=== PATIENT | female | born 1930 | race Caucasian/White ===

== ENCOUNTER 2019-10-05 11:05 | Inpatient (IN) | payer OTHER ==
[2019-10-05] MEDS ORDERED: LACTATED RINGERS SOLUTION 1,000 ML IV STA (11:34)
--- NOTE | 2019-10-05 12:10 | PDOC ---
Documentation entered by Francisco Davila SCRIBE, acting as scribe for Kimi Mendez MD. Kimi Mendez MD: This documentation has been prepared by the Lola da silva Nirvannie, SCRIBE, under my direction and personally reviewed by me in its entirety. I confirm that the documentation accurately reflects all work, treatment, procedures, and medical decision making performed by me. History of Present Illness - General Stated Complaint: Diarrhea Time Seen by Provider: 10/05/19 11:12 History Source: Patient Exam Limitations: No Limitations - History of Present Illness Initial Comments: 10/05/19 12:55 HPI: The patient is an 88YOF with a significant past medical history of hypertension , macular degeneration, and decreased hearing presenting to the ED with 4 days of generalized weakness, nonproductive cough, and new onset of one day of watery brown diarrhea. a/w poor appetite and PO intake x 3 days. As per patient s daughter at bedside, she recently fell out of bed 4 days ago on Thursday and landed on her knees, at which time she was unable to get up and EMS was called ( pt signed RMA and did not come to the hospital). Daughter notes yesterday the patient called her and noted to feel sick thus, she took her to her PCP Dr. Meza today. While in the office patient had one episode of nonbloody, watery, brown diarrhea x 1 large episode. Patient was advised by her PCP to report to the ED for further evaluation. Patient is up to date with her flu shot. Denies fever, chills, chest pain, SOB, palpitations, dizziness, weakness, N, V, abdominal pain, bladder problems, focal weakness/paresthesias, leg swelling/pain , rash. No sick contacts or travel. No new changes in medications. No suspicious food intake Allergies: None Past Medical History/PSH: hypertension, macular degeneration, and decreased hearing Social history: Lives with family. No tobacco, ETOH or drug use. Meds: as documented in EMR Family history: noncontributory PMD: Dr. Meza ROS: Constitutional: +fevers , +generalized malaise, anorexia, poor PO intake HEENT: no headache or dizziness. No congestion. No visual/hearing disturbances. CVS: no cp or syncope. Resp: +sob. +cough. Gastrointestinal: +Diarrhea. no abdominal pain, nausea or vomiting. Genitourinary: no urinary sx, hematuria. MUSCULOSKELETAL: No joint pain and swelling. No neck or back pain. SKIN: no redness or skin changes, no discharge, no rash. No wounds. Hematologic: no easy bruising/bleeding. NEUROLOGIC: No headache, dizziness, LOC or altered mental status. No weakness, numbness or tingling. Psych: no anxiety or depression Allergic/Immunologic: no allergies All other systems reviewed and negative, or as documented in HPI. Physical Exam: General: awake and alert, NAD. HEENT: NCAT, PERRL, EOMI, clear conjunctiva, anicteric, moist mucus membranes, clear oropharynx, no oral lesions.. Neck: neck supple, FROM Resp: +Diminished breath sounds on the left. normal and even respirations, no respiratory distress CVS: RRR, no murmurs, 2+ peripheral pulses throughout, no peripheral edema Abdomen: soft, NTND, no rebound or guarding. No CVAT. Back: nontender, normal inspection and ROM MSK: no edema, ALATORRE x4, ROM intact. No clubbing or cyanosis. normal bulk and tone. Extremities: no calf tenderness Neuro: alert, oriented appropriately; no focal neurologic deficits Psych: Calm and cooperative Skin: warm and well perfused, cap refill <2 sec, normal color 10/05/19 13:48 10/05/19 13:58 10/05/19 14:10 Past History - Past Medical History Allergies/Adverse Reactions: Allergies Allergy/AdvReac Type Severity Reaction Status Date / Time No Known Allergies Allergy Verified 10/26/12 13:47 Home Medications: Ambulatory Orders Aspirin Coated [Ecotrin -] 81 mg PO DAILY 10/26/12 Atorvastatin Calcium [Lipitor] 10 mg PO HS 10/26/12 Calcium Citrate/Vitamin D3 [Citracal-Vit D 250 mg-200 Tab] 1 each PO DAILY 10/26 Metoprolol Succinate [Toprol XL -] 100 mg PO DAILY 10/26/12 Quinapril HCl [Accupril -] 40 mg PO DAILY 10/26/12 Diazepam [Valium] 5 mg PO Q8H 10/05/19 Metoprolol Succinate 50 mg PO HS 10/05/19 Anemia: No Asthma: No Cancer: No Cardiac Disorders: No CVA: No COPD: No CHF: No Dementia: No Diabetes: No GI Disorders: Yes (DIVERTICULOSIS) Disorders: No HTN: Yes Hypercholesterolemia: Yes Liver Disease: No Seizures: No Thyroid Disease: No - Surgical History Neurologic Surgery: No Orthopedic Surgery: No - Psycho Social/Smoking Cessation Hx Smoking History: Never smoked Hx Alcohol Use: No Drug/Substance Use Hx: No Substance Use Type: None *Physical Exam - Vital Signs Last Vital Signs Temp Pulse Resp BP Pulse Ox 98 F 90 17 143/70 97 10/05/19 11:05 10/05/19 11:05 10/05/19 11:05 10/05/19 11:05 10/05/19 11:05 Heart Score/ECG Review #1 ECG reviewed & interpreted by me at: 12:00 General ECG Interpretation: Sinus Rhythm, Normal Rate, Normal Intervals 10/05/19 12:09 EKG normal sinus rhythm 77 bpm, no interval abnormalities, left axis deviation, LBBB, ST and T wave segments and morphology normal. Nonspecific T wave abnormalities ED Treatment Course - LABORATORY CBC & Chemistry Diagram: 10/05/19 12:13 10/05/19 12:13 Medical Decision Making - Critical Care Time Total Critical Care Time (minutes): 40 (influenza, NSTEMI) Critical Care Statement: The care of this patient involved high complexity decision making to prevent further life threatening deterioration of the patient 's condition and/or to evaluate & treat vital organ system(s) failure or risk of failure. - Medical Decision Making 10/05/19 13:50 Vital Signs Temp Pulse Resp BP Pulse Ox 98 F 90 17 143/70 97 10/05/19 11:05 10/05/19 11:05 10/05/19 11:05 10/05/19 11:05 10/05/19 11:05 Vital signs notable for no fever, hemodynamically appropriate, no tachycardia, SPO2 97% on room air without respiratory distress. Differential diagnosis includes dehydration, viral gastroenteritis, influenza, viral syndrome, pneumonia, infection, anemia, electrolyte/metabolic derangements Laboratory results unremarkable, no leukocytosis, no evidence anemia, coags are normal, electrolytes also within normal limits, LFTs are normal. However troponin is elevated 0.15 likely demand, patient is also influenza A positive, given her acute symptoms and age and comorbidities, risk of complications so we will treat with Tamiflu. Dr Carias cards cs likely demand 2/2 influenza. ASA given for NSTEMi d/w Dr Meza, PMD, amenable to plan updated with results, ok with admission to hospitalist service Admission with droplet precautions for influenza virus and symptomatic, risk of complications and and STEMI likely demand ischemia, equipment monitor phototypesetting, continued observation hydration and antiviral therapy pt and family updated with impression and plan. admitting and s/o to Dr Teresa Reyes, 10/05/19 14:10 Discharge - Discharge Information Problems reviewed: Yes Clinical Impression/Diagnosis: Influenza A, NSTEMI (non-ST elevated myocardial infarction) Condition: Guarded - Admission Yes - Follow up/Referral Referrals: Pedro Meza MD [Primary Care Provider] - - Patient Discharge Instructions - Post Discharge Activity
[2019-10-05 12:34] LABS: BASO % 0.4 % (0-2.0); HEMATOCRIT 42.1 % (32.4-45.2); HEMOGLOBIN 14.5 GM/dL (10.7-15.3); LYMPH % 12.8 % (8-40); MCH 32.2 pg (25.7-33.7); MCHC 34.4 g/dl (32.0-36.0); MEAN CELL VOLUME 93.5 fl (80-96); MEAN PLT VOLUME 7.1 fl (7.5-11.1); MONO % 14.3 % (3.8-10.2); NEUT % 72.5 % (42.8-82.8); PLATELET COUNT 156 K/MM3 (134-434); RDW 13.8 % (11.6-15.6); WHITE BLOOD COUNT 5.2 K/mm3 (4.0-10.0)
[2019-10-05 13:01] LABS: INR 0.94 (0.83-1.09); PROTHROMBIN TIME (PATIENT) 11.1 SEC (9.7-13.0)
[2019-10-05 13:04] LABS: ACTIVATED PTT 28.6 SECONDS (25.2-36.5)
[2019-10-05 13:24] LABS: ALBUMIN 3.4 g/dl (3.4-5.0); BILIRUBIN,TOTAL 0.5 mg/dL (0.2-1); BLOOD UREA NITROGEN 18.2 mg/dL (7-18); CALCIUM 8.7 mg/dL (8.5-10.1); CREATININE 0.7 mg/dL (0.55-1.3); POTASSIUM 3.7 mmol/L (3.5-5.1); TOT PROT 6.6 g/dl (6.4-8.2)
[2019-10-05] MEDS ORDERED: OSELTAMIVIR PHOSPHATE 75 MG CAPSULE PO ONE (13:48)
[2019-10-05] MEDS ORDERED: ASPIRIN 81 MG CHEWABLE TABLETS PO ONE (13:48)
[2019-10-05] MEDS ORDERED: ASPIRIN 81 MG CHEWABLE TABLETS ONE (14:05)
[2019-10-05] MEDS ORDERED: OSELTAMIVIR PHOSPHATE 75 MG CAPSULE ONE (14:05)
[2019-10-05] MEDS ORDERED: LACTATED RINGERS SOLUTION 1,000 ML/1,000 ML INFUS.BAG IV SCH (14:45)
--- NOTE | 2019-10-05 14:47 | HP ---
CHIEF COMPLAINT: generalized weakness PCP: Dr. Meza HISTORY OF PRESENT ILLNESS: Pt. is an 88 y.o. F w/ PMHx. of HTN, HLD, macular degeneration, and hearing loss presents for 4 days of generalized weakness and non-productive cough. Pt. states that 4 days ago she was found down on the toilet for ~4hours. Pt. was unable to get her self up but denies hitting her head or loss of consciousness. Pt. states that she eased herself to the ground from the toilet and did not have the strength to pull herself up. EMS was called but Pt. refused going to the hospital. Her weakness continued and she decided to visit her PCP. She had an episode of non-bloody watery diarrhea x 1 before going to see her PCP. Pt. went to the ED immediately. Pt. endorses a good appetite and is asking for food. Pt. denies any fever, chills, pain anywhere including her chest, shortness of breath, dysuria, or any focal weakness more than other sites of her body. Pt. states she received her Flu vaccine, had unremarkable colonoscopy 6 years ago and is uptodate with all her screenings. 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 She lives at home wither her who is becoming increasingly difficult to manage. Pt. states she was prescribed PRN Valium to "deal with him," but only takes half a pill and cannot remember the last time she took the pill. Pt. states she does not take it everyday. Family is in the process of placing him into a SNF for closer monitoring. Pt. is independent and ambulates without assistance. ER course was notable for: (1)ASA 324mg, LR x 1L, Tamiflu (2) CBC, CMP, Trop, CT Head (3) Recent Travel: No PAST MEDICAL HISTORY: As above PAST SURGICAL HISTORY: Hysterectomy Social History: Smoking: Denies Alcohol: Denies Drugs: Denies Allergies No Known Allergies Allergy (Verified 10/26/12 13:47) HOME MEDICATIONS: Home Medications Medication Instructions Recorded Aspirin Coated [Ecotrin -] 81 mg PO DAILY 10/26/12 Atorvastatin Calcium [Lipitor] 10 mg PO HS 10/26/12 Calcium Citrate/Vitamin D3 1 each PO DAILY 10/26/12 [Citracal-Vit D 250 mg-200 Tab] Metoprolol Succinate [Toprol XL -] 100 mg PO DAILY 10/26/12 Quinapril HCl [Accupril -] 40 mg PO DAILY 10/26/12 Diazepam [Valium] 5 mg PO Q8H 10/05/19 Metoprolol Succinate 50 mg PO HS 10/05/19 REVIEW OF SYSTEMS As above PHYSICAL EXAMINATION Vital Signs - 24 hr 10/05/19 11:05 Temperature 98 F Pulse Rate 90 Respiratory 17 Rate Blood Pressure 143/70 O2 Sat by Pulse 97 Oximetry (%) GENERAL: Awake, alert, and fully oriented, in no acute distress. HEAD: Normal with no signs of trauma. EYES: Pupils equal, round and reactive to light, extraocular movements intact, sclera anicteric, conjunctiva clear. Left lid droop. EARS, NOSE, THROAT: Ears normal, nares patent, oropharynx clear without exudates. Dry mucous membranes. LUNGS: Breath sounds equal, clear to auscultation bilaterally. No wheezes, and no crackles. No accessory muscle use. HEART: Regular rate and rhythm, normal S1 and S2 with systolic murmur ABDOMEN: Soft, nontender, not distended, normoactive bowel sounds, no guarding, no rebound, no masses. MUSCULOSKELETAL: Normal range of motion at all joints. No bony deformities or tenderness. No CVA tenderness. UPPER EXTREMITIES: Warm, well-perfused. No cyanosis. No clubbing. No peripheral edema. LOWER EXTREMITIES: 2+ dorsal pedal pulses, warm, well-perfused. No calf tenderness. No peripheral edema. NEUROLOGICAL: Normal speech. Moves all extremities. PSYCHIATRIC: Cooperative. Good eye contact. Appropriate mood and affect. SKIN: Warm, dry, Left guerin lesion. ' Laboratory Results - last 24 hr 10/05/19 10/05/19 10/05/19 12:13 12:13 12:13 WBC 5.2 RBC 4.50 Hgb 14.5 Hct 42.1 MCV 93.5 MCH 32.2 MCHC 34.4 RDW 13.8 Plt Count 156 MPV 7.1 L Absolute Neuts (auto) 3.8 Neutrophils % 72.5 Lymphocytes % 12.8 Monocytes % 14.3 H Eosinophils % 0.0 Basophils % 0.4 Nucleated RBC % 0 PT with INR 11.10 INR 0.94 PTT (Actin FS) 28.6 Sodium 132 L Potassium 3.7 Chloride 97 L Carbon Dioxide 27 Anion Gap 8 BUN 18.2 H Creatinine 0.7 Est GFR (CKD-EPI)AfAm 89.66 Est GFR (CKD-EPI)NonAf 77.36 Random Glucose 119 H Lactic Acid Calcium 8.7 Total Bilirubin 0.5 AST 66 H ALT 32 Alkaline Phosphatase 63 Creatine Kinase 637 H Creatine Kinase Index 0.8 CK-MB (CK-2) 5.1 H Troponin I 0.15 H Total Protein 6.6 Albumin 3.4 Lipase 226 Influenza A (Rapid) Influenza B (Rapid) 10/05/19 10/05/19 12:13 12:13 WBC RBC Hgb Hct MCV MCH MCHC RDW Plt Count MPV Absolute Neuts (auto) Neutrophils % Lymphocytes % Monocytes % Eosinophils % Basophils % Nucleated RBC % PT with INR INR PTT (Actin FS) Sodium Potassium Chloride Carbon Dioxide Anion Gap BUN Creatinine Est GFR (CKD-EPI)AfAm Est GFR (CKD-EPI)NonAf Random Glucose Lactic Acid 1.6 Calcium Total Bilirubin AST ALT Alkaline Phosphatase Creatine Kinase Creatine Kinase Index CK-MB (CK-2) Troponin I Total Protein Albumin Lipase Influenza A (Rapid) Positive A Influenza B (Rapid) Negative ASSESSMENT/PLAN: Pt. is an 88 y.o. F w/ PMHx. of HTN, HLD, macular degeneration, and hearing loss presents for 4 days of generalized weakness and non-productive cough. #Generalized Weakness 2/2 Influenza and dehydration Flu A positive CXR: No acute pathology elevated BUN:Cr indicative of slight ESTIVEN likely 2/2 dehydration c/w Tamiflu 30mg BID (renally dosed) IVF Isolation precaution #Unwitnessed Fall f/u Head CT Will not continue Valium and advise Pt. on discharge to avoid Benzos Pt. currently asymptomatic Neurochecks #Troponinemia Trop: 0.15, flu Rpt. EKG: NSR, QTc: 459, incomplete LBBB f/u RPt. Troponin elevation likely 2/2 to elevated CPK: 637- Pt. reportedly down for 4 hours Cardiology consult to Dr. Carias appreciated #HTN #HLD c/w ASA, Metoprolol, Quinapril and Lipitor #FEN LR@ 42, encourage PO intake monitor electrolytes and replete as needed Sodium controlled diet #DVT Ppx. Lovenox 40mg SQ Visit type - Emergency Visit Emergency Visit: Yes ED Registration Date: 10/05/19 Care time: The patient presented to the Emergency Department on the above date and was hospitalized for further evaluation of their emergent condition. - New Patient This patient is new to me today: Yes Date on this admission: 10/05/19 - Critical Care Critical Care patient: No ATTENDING PHYSICIAN STATEMENT I saw and evaluated the patient. I reviewed the resident's note and discussed the case with the resident. I agree with the resident's findings and plan as documented. SUBJECTIVE: OBJECTIVE: ASSESSMENT AND PLAN:
--- NOTE | 2019-10-05 15:38 | EKG ---
Test Reason : Blood Pressure : / mmHG Vent. Rate : 077 BPM Atrial Rate : 077 BPM P-R Int : 152 ms QRS Dur : 136 ms QT Int : 422 ms P-R-T Axes : 035 -57 103 degrees QTc Int : 477 ms NORMAL SINUS RHYTHM POSSIBLE LEFT ATRIAL ENLARGEMENT LEFT AXIS DEVIATION LEFT BUNDLE BRANCH BLOCK ABNORMAL ECG NO PREVIOUS ECGS AVAILABLE Confirmed by MD Roland Edward ([id number]) on 10/05/2019 3:37:48 PM Referred By: Confirmed By:Roshan Roland MD
--- NOTE | 2019-10-05 15:41 | CON.CARD ---
Cardiology Consult (text) - Consultation Consultation Note: cc: weakness, cough, diarrhea hpi: 88 f hx htn, hld, here with weakness, cough, diarrhea. Past few days has had these sxs. Decreased appetite as well. No cp sob palps dizzy loc pnd orthopnea le edema. +flu in er. pmh: per hpi psh: colonoscopy social: no tob fam: no premature cad ros:per hpi; all others nl meds: Home Medications Medication Instructions Recorded Aspirin Coated [Ecotrin -] 81 mg PO DAILY 10/26/12 Atorvastatin Calcium [Lipitor] 10 mg PO HS 10/26/12 Calcium Citrate/Vitamin D3 1 each PO DAILY 10/26/12 [Citracal-Vit D 250 mg-200 Tab] Metoprolol Succinate [Toprol XL -] 100 mg PO DAILY 10/26/12 Quinapril HCl [Accupril -] 40 mg PO DAILY 10/26/12 Diazepam [Valium] 5 mg PO Q8H 10/05/19 Metoprolol Succinate 50 mg PO HS 10/05/19 pe: Vital Signs Period Temp Pulse Resp BP Sys/Olivas Pulse Ox Last 24 Hr 98 F 90 17 143/70 97 nad no jvd rrr s1s2 no mrg cta bl nl eff aao3 no le e/c/c abd nt nd pos bs no jaundice diaphoresis pos dp pt no carotid bruits Laboratory Last Values WBC 5.2 K/mm3 (4.0-10.0) 10/05/19 12:13 RBC 4.50 M/mm3 (3.60-5.2) 10/05/19 12:13 Hgb 14.5 GM/dL (10.7-15.3) 10/05/19 12:13 Hct 42.1 % (32.4-45.2) 10/05/19 12:13 MCV 93.5 fl (80-96) 10/05/19 12:13 MCH 32.2 pg (25.7-33.7) 10/05/19 12:13 MCHC 34.4 g/dl (32.0-36.0) 10/05/19 12:13 RDW 13.8 % (11.6-15.6) 10/05/19 12:13 Plt Count 156 K/MM3 (134-434) 10/05/19 12:13 MPV 7.1 fl (7.5-11.1) L 10/05/19 12:13 Absolute Neuts (auto) 3.8 K/mm3 (1.5-8.0) 10/05/19 12:13 Neutrophils % 72.5 % (42.8-82.8) 10/05/19 12:13 Lymphocytes % 12.8 % (8-40) 10/05/19 12:13 Monocytes % 14.3 % (3.8-10.2) H 10/05/19 12:13 Eosinophils % 0.0 % (0-4.5) 10/05/19 12:13 Basophils % 0.4 % (0-2.0) 10/05/19 12:13 Nucleated RBC % 0 % (0-0) 10/05/19 12:13 PT with INR 11.10 SEC (9.7-13.0) 10/05/19 12:13 INR 0.94 (0.83-1.09) 10/05/19 12:13 PTT (Actin FS) 28.6 SECONDS (25.2-36.5) 10/05/19 12:13 Sodium 132 mmol/L (136-145) L 10/05/19 12:13 Potassium 3.7 mmol/L (3.5-5.1) 10/05/19 12:13 Chloride 97 mmol/L (98-107) L 10/05/19 12:13 Carbon Dioxide 27 mmol/L (21-32) 10/05/19 12:13 Anion Gap 8 MMOL/L (8-16) 10/05/19 12:13 BUN 18.2 mg/dL (7-18) H 10/05/19 12:13 Creatinine 0.7 mg/dL (0.55-1.3) 10/05/19 12:13 Est GFR (CKD-EPI)AfAm 89.66 10/05/19 12:13 Est GFR (CKD-EPI)NonAf 77.36 10/05/19 12:13 Random Glucose 119 mg/dL (74-106) H 10/05/19 12:13 Lactic Acid 1.6 mmol/L (0.4-2.0) 10/05/19 12:13 Calcium 8.7 mg/dL (8.5-10.1) 10/05/19 12:13 Total Bilirubin 0.5 mg/dL (0.2-1) 10/05/19 12:13 AST 66 U/L (15-37) H 10/05/19 12:13 ALT 32 U/L (13-61) 10/05/19 12:13 Alkaline Phosphatase 63 U/L (45-117) 10/05/19 12:13 Creatine Kinase 637 U/L (26-192) H 10/05/19 12:13 Creatine Kinase Index 0.8 % (0.0-5.0) 10/05/19 12:13 CK-MB (CK-2) 5.1 ng/mL (0.5-3.6) H 10/05/19 12:13 Troponin I 0.15 ng/ml (0.00-0.05) H 10/05/19 12:13 Total Protein 6.6 g/dl (6.4-8.2) 10/05/19 12:13 Albumin 3.4 g/dl (3.4-5.0) 10/05/19 12:13 Lipase 226 U/L (73-393) 10/05/19 12:13 Influenza A (Rapid) Positive (Negative) A 10/05/19 12:13 Influenza B (Rapid) Negative (Negative) 10/05/19 12:13 ecg: sr, old lbbb cxr: clear lungs a/p: 88 f hx htn, hld, here with weakness, cough, diarrhea. elevated trop: -borderline trop elevation, nl ck index. No concerning cardiac sxs. ECG with chronic LBBB. Does not seem like acs. Would trend ce's for now, monitor on tele, and check echo. htn: -cont home meds hld: -cont statin flu: -abx per primary team
--- NOTE | 2019-10-05 15:45 | PN ---
Teaching Attending Note Name of Resident: Damon Champagne ATTENDING PHYSICIAN STATEMENT I saw and evaluated the patient. I reviewed the resident's note and discussed the case with the resident. I agree with the resident's findings and plan as documented. SUBJECTIVE: PCP: Dr. Meza HISTORY OF PRESENT ILLNESS: Pt. is an 88 y.o. F w/ PMHx. of HTN, HLD, macular degeneration, and hearing loss presents for 4 days of generalized weakness and non-productive cough. Pt. states that 4 days ago she was found down on the toilet for ~4hours. Pt. was unable to get her self up but denies hitting her head or loss of consciousness. Pt. states that she eased herself to the ground from the toilet and did not have the strength to pull herself up. EMS was called but Pt. refused going to the hospital. Her weakness continued she had an episode of non-bloody watery diarrhea x 1. Pt. was sent to the ED immediately. Pt. endorses a good appetite and is asking for food. Pt. denies any fever, chills, pain anywhere including her chest, shortness of breath, dysuria, or any focal weakness more than other sites of her body. Pt. states she received her Flu vaccine, had unremarkable colonoscopy 6 years ago and is uptodate with all her screenings. She lives at home wither her who is becoming increasingly difficult to manage. Pt. states she was prescribed PRN Valium to "deal with him," but only takes half a pill and cannot remember the last time she took the pill. Pt. states she does not take it everyday. Family is in the process of placing him into a SNF for closer monitoring. Pt. is independent and ambulates without assistance. OBJECTIVE:appers comfortable, nad aao.3 vss neck supple no jvs cvs s1/s2/0 chest ctab abd soft NT, NO, Bs+ ext no c/c/e neuro non focal ASSESSMENT/PLAN: Pt. is an 88 y.o. F w/ PMHx. of HTN, HLD, macular degeneration, and hearing loss presents for 4 days of generalized weakness and non-productive cough. 1)Generalized Weakness 2/2 Influenza and dehydration Flu A positive CXR: No acute pathology elevated BUN:Cr indicative of slight ESTIVEN likely 2/2 dehydration also has hig cpk, likely from the fall, c/w Tamiflu 30mg BID (renally dosed) IVF Isolation precaution 2)Unwitnessed Fall, no LOC, f/u Head CT, no acute changes, avoid valium, or any sedative as a potential cause of the fall, neurochecks, 3)Troponinemia Trop: 0.15, flu Rpt. EKG: NSR, QTc: 459, incomplete LBBB f/u RPt. likely deman ischemia, Cardiology consult appreciated has high ast, will fu repeat if needed will order luzma coates, cont home meds.
[2019-10-05 17:27] LABS: HYALINE CASTS 1 /lpf (0-8); URINE APPEARANCE CLOUDY; URINE BACTERIA 117.3 /hpf (NEGATIVE); URINE BILIRUBIN NEGATIVE (NEGATIVE); URINE COLOR YELLOW; URINE GLUCOSE (UA) NEGATIVE (NEGATIVE); URINE KETONE NEGATIVE (NEGATIVE); URINE LEUK ESTERASE TRACE (NEGATIVE); URINE NITRITE NEGATIVE (NEGATIVE); URINE PROTEIN NEGATIVE (NEGATIVE); URINE RBC 16 /hpf (0-4); URINE UROBILINOGEN 0.2 mg/dL (0.2-1.0); URINE WBC 1 /hpf (0-5)
[2019-10-05 19:51] LABS: URINE CRYSTALS FEW /hpf
[2019-10-05] MEDS: DEXTROSE 5%-0.45% SALINE 1,000 ML IV SCH (20:06)
[2019-10-05] MEDS ORDERED: OSELTAMIVIR PHOSPHATE 75 MG CAPSULE PO SCH (22:00)
[2019-10-05] MEDS ORDERED: ATORVASTATIN CA 10 MG TABLET (FP) ONE (22:26)
[2019-10-05] MEDS: ATORVASTATIN CA 10 MG TABLET (FP) PO SCH (22:39)
[2019-10-05] MEDS: OSELTAMIVIR PHOSPHATE 30 MG CAPSULE PO SCH (22:39)
[2019-10-06 08:23] LABS: ALBUMIN 3.2 g/dl (3.4-5.0); BILIRUBIN,TOTAL 0.9 mg/dL (0.2-1); BLOOD UREA NITROGEN 13.7 mg/dL (7-18); CALCIUM 8.6 mg/dL (8.5-10.1); CREATININE 0.6 mg/dL (0.55-1.3); HEMATOCRIT 38.8 % (32.4-45.2); HEMOGLOBIN 13.5 GM/dL (10.7-15.3); MCH 32.1 pg (25.7-33.7); MCHC 34.7 g/dl (32.0-36.0); MEAN CELL VOLUME 92.5 fl (80-96); MEAN PLT VOLUME 7.1 fl (7.5-11.1); PHOSPHOROUS 2.6 mg/dL (2.5-4.9); PLATELET COUNT 154 K/MM3 (134-434); POTASSIUM 3.4 mmol/L (3.5-5.1); RBC 4.19 M/mm3 (3.60-5.2); RDW 13.5 % (11.6-15.6); WHITE BLOOD COUNT 4.6 K/mm3 (4.0-10.0)
[2019-10-06] MEDS ORDERED: [UNRECOGNIZED DRUG - OTHER] PO SCH (10:00)
[2019-10-06] MEDS ORDERED: VITAMIN D3 PO SCH (10:00)
[2019-10-06] MEDS ORDERED: CALCIUM CITRATE PO SCH (10:00)
--- NOTE | 2019-10-06 11:50 | PN ---
Progress Note (short form) - Note Progress Note: s: no cp sob palps dizzy Current Medications Generic Name Dose Route Start Last Admin Trade Name Quintonq PRN Reason Stop Dose Admin Aspirin 81 mg 10/06/19 10:00 Ecotrin - PO DAILY IVETTE Atorvastatin Calcium 10 mg 10/05/19 22:00 10/05/19 22:39 Lipitor - PO 10 mg HS IVETTE Administration Enoxaparin Sodium 40 mg 10/06/19 10:00 Lovenox - SQ DAILY IVETTE Lactated Ringer's 1,000 ml in 1,000 mls @ 42 mls/hr 10/05/19 14:45 10/05/19 15:46 Lactated Ringers Solution IV 10/06/19 14:34 42 mls/hr ASDIR IVETTE Administration Dextrose/Sodium Chloride 1,000 mls @ 75 mls/hr 10/05/19 19:15 10/05/19 20:06 D5-1/2ns - IV 75 mls/hr ASDIR IVETTE Administration Metoprolol Succinate 50 mg 10/05/19 22:00 10/05/19 22:39 Toprol Xl - PO 50 mg HS IVETTE Administration Metoprolol Succinate 100 mg 10/06/19 10:00 Toprol Xl - PO DAILY IVETTE Non-Formulary Medication 1 each 10/06/19 10:00 Calcium Citrate/Vitamin D3 [Citracal-Vit D 250 Mg-200 Tab] PO DAILY IVETTE Oseltamivir Phosphate 30 mg 10/05/19 22:00 10/05/19 22:39 Tamiflu - PO 10/10/19 21:59 30 mg BID IVETTE Administration Quinapril HCl 40 mg 10/06/19 10:00 Accupril - PO DAILY IVETTE pe: Vital Signs Period Temp Pulse Resp BP Sys/Olivas Pulse Ox Last 24 Hr 98.4 F-98.9 F 69-89 17-19 134-168/71-76 95-100 nad no jvd rrr s1s2 no mrg cta bl nl eff aao3 no le e/c/c abd nt nd pos bs no jaundice diaphoresis CBC, BMP 10/06/19 07:00 10/06/19 07:00 ecg: sr, old lbbb cxr: clear lungs a/p: 88 f hx htn, hld, here with weakness, cough, diarrhea. elevated trop: -borderline trop elevation with flat trend, nl ck index. No concerning cardiac sxs. ECG with chronic LBBB. Does not seem like acs. check echo, if benign then no further cardiac testing for now htn: -cont home meds hld: -cont statin flu: -abx per primary team
[2019-10-06] MEDS: ENOXAPARIN NA (PORCINE) 40 MG/0.4 ML DISP.SYRIN SQ SCH (11:56)
[2019-10-06] MEDS: OSELTAMIVIR PHOSPHATE 30 MG CAPSULE PO SCH ×2 (11:56→22:39)
[2019-10-06] MEDS: QUINAPRIL HCL 40 MG TABLET (FP) PO SCH (11:56)
[2019-10-06] MEDS: ASPIRIN COATED 81 MG TABLET.EC PO SCH (11:56)
--- NOTE | 2019-10-06 12:03 | ECHO ---
Name: AUGUSTUS POMPA Exam:Adult Echocardiogram Study Date: 10/06/2019 08:29 AM Age: 88 yrs Height: 58 in Weight: 100 lb BSA: 1.4 m2 MMode/2D Measurements & Calculations IVSd: 0.99 cm Ao root diam: 2.6 cm LVIDd: 2.5 cm LA dimension: 2.6 cm LVIDs: 1.9 cm ACS: 1.7 cm LVPWd: 1.4 cm EDV(Teich): 23.1 ml LVOT diam: 1.7 cm ESV(Teich): 11.2 ml RV S Jose: 14.6 cm/sec Doppler Measurements & Calculations MV E max jose: 60.7 cm/sec MVA(VTI): 2.5 cm2 MV A max jose: 104.1 cm/sec MV V2 max: 106.1 cm/sec MV E/A: 0.58 MV max P.5 mmHg MV dec time: 0.23 sec MV V2 mean: 57.2 cm/sec MV mean P.5 mmHg MV V2 VTI: 20.5 cm Ao V2 max: 181.0 cm/sec AI max jose: 502.9 cm/sec Ao max P.1 mmHg AI max P.2 mmHg Ao V2 mean: 113.6 cm/sec Ao mean P.8 mmHg AI dec slope: 344.3 cm/sec2 Ao V2 VTI: 46.8 cm BRAVO(I,D): 1.1 cm2 AI P1/2t: 427.8 msec BRAVO(V,D): 1.4 cm2 LV V1 max P.7 mmHg MR max jose: 352.4 cm/sec LV V1 mean P.1 mmHg MR max P.7 mmHg LV V1 max: 108.1 cm/sec LV V1 mean: 84.1 cm/sec LV V1 VTI: 21.3 cm SV(LVOT): 50.3 ml TR max jose: 276.9 cm/sec TR max P.7 mmHg PA V2 max: 74.5 cm/sec Med Peak E' Jose: 2.9 cm/sec PA max P.2 mmHg Med E/e': 21.3 Procedure A complete two-dimensional transthoracic echocardiogram was performed (2D, M-mode, Doppler and color flow Doppler). Left Ventricle The left ventricular size, thickness and function are normal. The left ventricular ejection fraction is normal. Ejection Fraction = 60-65%. The left ventricular wall motion is normal. Right Ventricle The right ventricle is normal in size and function. Atria Normal left and right atrial size and function. Mitral Valve There is no mitral regurgitation noted. Tricuspid Valve There is mild tricuspid regurgitation. Right ventricular systolic pressure is normal. Aortic Valve The aortic valve is trileaflet. No hemodynamically significant valvular aortic stenosis. Trace aortic regurgitation. Pulmonic Valve There is no pulmonic valvular regurgitation. Great Vessels The aortic root is normal size. Pericardium/Pleura There is no pericardial effusion. Interpretation Summary The left ventricular size, thickness and function are normal The right ventricle is normal in size and function. There is mild tricuspid regurgitation. Trace aortic regurgitation. MD Emory Sherwood 10/06/2019 12:03 PM
--- NOTE | 2019-10-06 12:42 | EKG ---
Test Reason : Blood Pressure : / mmHG Vent. Rate : 061 BPM Atrial Rate : 061 BPM P-R Int : 150 ms QRS Dur : 136 ms QT Int : 472 ms P-R-T Axes : 051 -56 088 degrees QTc Int : 475 ms SINUS RHYTHM WITH PREMATURE ATRIAL COMPLEXES POSSIBLE LEFT ATRIAL ENLARGEMENT LEFT AXIS DEVIATION LEFT BUNDLE BRANCH BLOCK ABNORMAL ECG WHEN COMPARED WITH ECG OF 05-OCT-2019 11:58, PREMATURE ATRIAL COMPLEXES ARE NOW PRESENT Confirmed by JOHN BOCANEGRA MD ([id number]) on 10/06/2019 12:42:29 PM Referred By: Confirmed By:JOHN BOCANEGRA MD
--- NOTE | 2019-10-06 15:18 | PN ---
Physical Exam: SUBJECTIVE: Patient seen and examined NAEON Endorses improvement on OBJECTIVE: Vital Signs Period Temp Pulse Resp BP Sys/Olivas Pulse Ox Last 24 Hr 97.7 F-98.5 F 65-89 15-22 139-168/65-72 95-100 GENERAL: The patient is awake, alert, in no acute distress. HEAD: NC/AT. Moderate temporal wasting EYES: extraocular movements intact, sclera anicteric, conjunctiva clear. No ptosis. ENT: Ears normal, nares patent, oropharynx clear without exudates, moist mucous membranes. NECK: Trachea midline, full range of motion, supple. Neg cervical LAD LUNGS: Breath sounds equal, clear to auscultation bilaterally, no wheezes, no crackles, no accessory muscle use. HEART: Regular rate and rhythm, S1, S2 without murmur, rub or gallop. ABDOMEN: Soft, nontender, nondistended, normoactive bowel sounds, no guarding, no rebound. EXTREMITIES: 2+ pulses, warm, well-perfused, no edema. NEUROLOGICAL: Normal speech, gait not observed. Mildly lethargic PSYCH: Normal mood, normal affect. SKIN: Warm, dry, normal turgor, no rashes or lesions noted Laboratory Results - last 24 hr 10/05/19 10/05/19 10/06/19 15:35 15:37 07:00 WBC 4.6 RBC 4.19 Hgb 13.5 Hct 38.8 MCV 92.5 MCH 32.1 MCHC 34.7 RDW 13.5 Plt Count 154 MPV 7.1 L Sodium Potassium Chloride Carbon Dioxide Anion Gap BUN Creatinine Est GFR (CKD-EPI)AfAm Est GFR (CKD-EPI)NonAf Random Glucose Calcium Phosphorus Magnesium Total Bilirubin AST ALT Alkaline Phosphatase Creatine Kinase Creatine Kinase Index CK-MB (CK-2) Troponin I 0.15 H Total Protein Albumin Urine Color Yellow Urine Appearance Cloudy Urine pH 7.0 Ur Specific [place] 1.005 L Urine Protein Negative Urine Glucose (UA) Negative Urine Ketones Negative Urine Blood 2+ H Urine Nitrite Negative Urine Bilirubin Negative Urine Urobilinogen 0.2 Ur Leukocyte Esterase Trace Urine WBC (Auto) 1 Urine RBC (Auto) 16 Urine Casts (Auto) 1 U Epithel Cells (Auto) 1.0 Urine Crystals (Auto) Few Urine Bacteria (Auto) 117.3 10/06/19 10/06/19 07:00 07:00 WBC RBC Hgb Hct MCV MCH MCHC RDW Plt Count MPV Sodium 142 Potassium 3.4 L Chloride 104 Carbon Dioxide 28 Anion Gap 10 BUN 13.7 Creatinine 0.6 Est GFR (CKD-EPI)AfAm 94.32 Est GFR (CKD-EPI)NonAf 81.38 Random Glucose 90 Calcium 8.6 Phosphorus 2.6 Magnesium 2.0 Total Bilirubin 0.9 AST 56 H ALT 29 Alkaline Phosphatase 57 Creatine Kinase 429 H Creatine Kinase Index 0.9 CK-MB (CK-2) 4.0 H Troponin I 0.04 Total Protein 6.0 L Albumin 3.2 L Urine Color Urine Appearance Urine pH Ur Specific [place] Urine Protein Urine Glucose (UA) Urine Ketones Urine Blood Urine Nitrite Urine Bilirubin Urine Urobilinogen Ur Leukocyte Esterase Urine WBC (Auto) Urine RBC (Auto) Urine Casts (Auto) U Epithel Cells (Auto) Urine Crystals (Auto) Urine Bacteria (Auto) Active Medications Generic Name Dose Route Start Last Admin Trade Name Freq PRN Reason Stop Dose Admin Aspirin 81 mg 10/06/19 10:00 10/06/19 11:56 Ecotrin - PO 81 mg DAILY IVETTE Administration Atorvastatin Calcium 10 mg 10/05/19 22:00 10/05/19 22:39 Lipitor - PO 10 mg HS IVETTE Administration Enoxaparin Sodium 40 mg 10/06/19 10:00 10/06/19 11:56 Lovenox - SQ 40 mg DAILY IVETTE Administration Dextrose/Sodium Chloride 1,000 mls @ 75 mls/hr 10/05/19 19:15 10/05/19 20:06 D5-1/2ns - IV 75 mls/hr ASDIR IVETTE Administration Metoprolol Succinate 50 mg 10/05/19 22:00 10/05/19 22:39 Toprol Xl - PO 50 mg HS IVETTE Administration Metoprolol Succinate 100 mg 10/06/19 10:00 10/06/19 11:56 Toprol Xl - PO 100 mg DAILY IVETTE Administration Non-Formulary Medication 1 each 10/06/19 10:00 Calcium Citrate/Vitamin D3 [Citracal-Vit D 250 Mg-200 Tab] PO DAILY IVETTE Oseltamivir Phosphate 30 mg 10/05/19 22:00 10/06/19 11:56 Tamiflu - PO 10/10/19 21:59 30 mg BID IVETTE Administration Quinapril HCl 40 mg 10/06/19 10:00 10/06/19 11:56 Accupril - PO 40 mg DAILY IVETTE Administration ASSESSMENT/PLAN: 88 y.o. F w/ PMHx. of HTN, HLD, macular degeneration, and hearing deficiency presented for 4 days of generalized weakness and non-productive cough. Had an episode of severe weakness with inability to ambulate, denied LOC. #Generalized Weakness 2/2 Influenza and dehydration > Flu A positive > CXR: No acute pathology - c/w Tamiflu 30mg BID (renally dosed) --day 2 - Isolation precaution #Unwitnessed Fall > Head CT: neg acute pathology. Mild ethmoid chronic sinusitis, mild nasal septum deviation - Neurochecks daily - PT evalu #Troponinemia --possibly 2/2 to recent severe weakness w/ being down > Trop: 0.15, 0.15, 0.04 > EKG: NSR, QTc: 459, incomplete LBBB f/u RPt. > Echo: LVEF 60-65% - Cardiology consult to Dr. Carias appreciated: --echo --if normal echo, then no further cardiac testing #HTN #HLD - cw ASA, Metoprolol, Quinapril and Lipitor #FEN -D5 1/2NS @75 -Sodium controlled diet #DVT Ppx. Lovenox 40mg SQ Visit type - Emergency Visit Emergency Visit: No - New Patient This patient is new to me today: No - Critical Care Critical Care patient: No ATTENDING PHYSICIAN STATEMENT I saw and evaluated the patient. I reviewed the resident's note and discussed the case with the resident. I agree with the resident's findings and plan as documented. SUBJECTIVE: OBJECTIVE: ASSESSMENT AND PLAN:
[2019-10-06 15:33] VITALS: BMI 20.2
--- NOTE | 2019-10-06 19:09 | PN ---
Teaching Attending Note Name of Resident: Nikunj Maurer ATTENDING PHYSICIAN STATEMENT I saw and evaluated the patient. I reviewed the resident's note and discussed the case with the resident. I agree with the resident's findings and plan as documented. SUBJECTIVE: Pt. is an 88yof with PMHx of HTN, HLD, macular degeneration, and hearing loss presents for 4 days of generalized weakness and non-productive cough. OBJECTIVE: Vital Signs Temperature 99.2 F 10/06/19 18:00 Pulse Rate 66 10/06/19 18:00 Respiratory Rate 20 10/06/19 18:00 Blood Pressure 118/64 10/06/19 18:00 O2 Sat by Pulse Oximetry (%) 96 10/06/19 15:36 GENERAL: The patient is awake, alert, oriented, in no acute distress. hard of hearing. HEAD: Normal with no signs of trauma. EYES: PERRL, extraocular movements intact, sclera anicteric, conjunctiva clear. ENT: Ears normal, oropharynx clear without exudates, moist mucous membranes. NECK: Trachea midline, full range of motion, supple. LUNGS: Breath sounds equal, clear to auscultation bilaterally, no wheezes, no crackles, no accessory muscle use. HEART: Regular rate and rhythm, S1, S2+, CHERYL 2/6 , no rub or gallop. ABDOMEN: Soft, nontender, nondistended, normoactive bowel sounds, no guarding, no rebound, no hepatosplenomegaly, no masses. EXTREMITIES: 2+ pulses, warm, well-perfused, no edema. NEUROLOGICAL: Cranial nerves II through XII grossly intact. Normal speech, gait not observed. PSYCH: Normal mood, normal affect. SKIN: Warm, dry, normal turgor, no rashes or lesions noted CBCD WBC 4.6 K/mm3 (4.0-10.0) 10/06/19 07:00 RBC 4.19 M/mm3 (3.60-5.2) 10/06/19 07:00 Hgb 13.5 GM/dL (10.7-15.3) 10/06/19 07:00 Hct 38.8 % (32.4-45.2) 10/06/19 07:00 MCV 92.5 fl (80-96) 10/06/19 07:00 MCHC 34.7 g/dl (32.0-36.0) 10/06/19 07:00 RDW 13.5 % (11.6-15.6) 10/06/19 07:00 Plt Count 154 K/MM3 (134-434) 10/06/19 07:00 MPV 7.1 fl (7.5-11.1) L 10/06/19 07:00 CMP Sodium 142 mmol/L (136-145) 10/06/19 07:00 Potassium 3.4 mmol/L (3.5-5.1) L 10/06/19 07:00 Chloride 104 mmol/L (98-107) 10/06/19 07:00 Carbon Dioxide 28 mmol/L (21-32) 10/06/19 07:00 Anion Gap 10 MMOL/L (8-16) 10/06/19 07:00 BUN 13.7 mg/dL (7-18) 10/06/19 07:00 Creatinine 0.6 mg/dL (0.55-1.3) 10/06/19 07:00 Random Glucose 90 mg/dL (74-106) 10/06/19 07:00 Calcium 8.6 mg/dL (8.5-10.1) 10/06/19 07:00 Total Bilirubin 0.9 mg/dL (0.2-1) 10/06/19 07:00 AST 56 U/L (15-37) H 10/06/19 07:00 ALT 29 U/L (13-61) 10/06/19 07:00 Alkaline Phosphatase 57 U/L (45-117) 10/06/19 07:00 Total Protein 6.0 g/dl (6.4-8.2) L 10/06/19 07:00 Albumin 3.2 g/dl (3.4-5.0) L 10/06/19 07:00 CARDIAC ENZYMES Creatine Kinase 429 U/L (26-192) H 10/06/19 07:00 Troponin I 0.04 ng/ml (0.00-0.05) 10/06/19 07:00 Current Medications Generic Name Dose Route Start Last Admin Trade Name Freq PRN Reason Stop Dose Admin Aspirin 81 mg 10/06/19 10:00 10/06/19 11:56 Ecotrin - PO 81 mg DAILY IVETTE Administration Atorvastatin Calcium 10 mg 10/05/19 22:00 10/05/19 22:39 Lipitor - PO 10 mg HS IVETTE Administration Enoxaparin Sodium 40 mg 10/06/19 10:00 10/06/19 11:56 Lovenox - SQ 40 mg DAILY IVETTE Administration Dextrose/Sodium Chloride 1,000 mls @ 75 mls/hr 10/05/19 19:15 10/05/19 20:06 D5-1/2ns - IV 75 mls/hr ASDIR IVETTE Administration Melatonin 5 mg 10/06/19 22:00 Melatonin PO HS IVETTE Metoprolol Succinate 50 mg 10/05/19 22:00 10/05/19 22:39 Toprol Xl - PO 50 mg HS IVETTE Administration Metoprolol Succinate 100 mg 10/06/19 10:00 10/06/19 11:56 Toprol Xl - PO 100 mg DAILY IVETTE Administration Non-Formulary Medication 1 each 10/06/19 10:00 Calcium Citrate/Vitamin D3 [Citracal-Vit D 250 Mg-200 Tab] PO DAILY IVETTE Oseltamivir Phosphate 30 mg 10/05/19 22:00 10/06/19 11:56 Tamiflu - PO 10/10/19 21:59 30 mg BID IVETTE Administration Quinapril HCl 40 mg 10/06/19 10:00 10/06/19 11:56 Accupril - PO 40 mg DAILY IVETTE Administration Home Medications Medication Instructions Recorded Aspirin Coated [Ecotrin -] 81 mg PO DAILY 10/26/12 Atorvastatin Calcium [Lipitor] 10 mg PO HS 10/26/12 Metoprolol Succinate [Toprol XL -] 100 mg PO DAILY 10/26/12 Quinapril HCl [Accupril -] 40 mg PO DAILY 10/26/12 Diazepam [Valium] 5 mg PO PRN 10/05/19 Metoprolol Succinate 50 mg PO HS 10/05/19 Hydrochlorothiazide [Hctz -] 25 mg PO DAILY 10/06/19 Vit A/Vit C/Vit E/Zinc/Copper 1 each PO DAILY 10/06/19 [Preservision Areds Softgel] EKG: NSR, QTc: 459, incomplete LBBB f/u RPt. ASSESSMENT AND PLAN: Pt. is an 88 y.o. F w/ PMHx. of HTN, HLD, macular degeneration, and hearing loss presents for 4 days of generalized weakness and non-productive cough. #Generalized Weakness due to Influenza and dehydration: Tamiflu 30mg BID ( renally dosed), Flu A positive #Unwitnessed Fall, no LOC, Head CT, no acute changes. # Troponinemia : trop: 0.15 ,likely demand ischemia, Cardiology consult appreciated DVT px: lovenox
[2019-10-06] MEDS: MELATONIN 5 MG TABLETS PO SCH (22:39)
[2019-10-06] MEDS: DEXTROSE 5%-0.45% SALINE 1,000 ML IV SCH (22:39)
[2019-10-06] MEDS: ATORVASTATIN CA 10 MG TABLET (FP) PO SCH (22:39)
[2019-10-07 07:39] LABS: HEMOGLOBIN 12.9 GM/dL (10.7-15.3); MCH 32.4 pg (25.7-33.7); MCHC 34.8 g/dl (32.0-36.0); PLATELET COUNT 146 K/MM3 (134-434); RBC 3.97 M/mm3 (3.60-5.2); RDW 13.5 % (11.6-15.6); WHITE BLOOD COUNT 3.9 K/mm3 (4.0-10.0)
[2019-10-07 07:59] LABS: BLOOD UREA NITROGEN 11.5 mg/dL (7-18); CALCIUM 8.6 mg/dL (8.5-10.1); CREATININE 0.6 mg/dL (0.55-1.3); MAGNESIUM 2.2 mg/dL (1.8-2.4); PHOSPHOROUS 3.2 mg/dL (2.5-4.9); POTASSIUM 3.3 mmol/L (3.5-5.1)
--- NOTE | 2019-10-07 09:24 | PN ---
Teaching Attending Note Name of Resident: Nikunj Maurer ATTENDING PHYSICIAN STATEMENT I saw and evaluated the patient. I reviewed the resident's note and discussed the case with the resident. I agree with the resident's findings and plan as documented. SUBJECTIVE: Patient is comfortable with no acute distress, no shortness of breath. feels weak. Vital Signs Temperature 97.8 F 10/07/19 02:00 Pulse Rate 68 10/07/19 06:00 Respiratory Rate 20 10/07/19 06:00 Blood Pressure 159/60 10/07/19 06:00 O2 Sat by Pulse Oximetry (%) 96 10/06/19 21:00 GENERAL: The patient is awake, alert, in no acute distress. HEAD: Normal with no signs of trauma. EYES: PERRL, extraocular movements intact, sclera anicteric, conjunctiva clear. ENT: Ears normal, oropharynx clear without exudates, moist mucous membranes. NECK: Trachea midline, full range of motion, supple. LUNGS: decreased Breath sounds bl, no wheezes, no crackles, no accessory muscle use. HEART: Regular rate and rhythm, S1, S2 positive, CHERYL 2/6, no rub or gallop. ABDOMEN: Soft, nontender, nondistended, normoactive bowel sounds, no guarding, no rebound, no hepatosplenomegaly, no masses. EXTREMITIES: 2+ pulses, warm, well-perfused, no edema. NEUROLOGICAL: Cranial nerves II through XII grossly intact. Normal speech, gait not observed. PSYCH: Normal mood, normal affect. SKIN: Warm, dry, normal turgor, no rashes or lesions noted CBCD WBC 3.9 K/mm3 (4.0-10.0) L 10/07/19 07:05 RBC 3.97 M/mm3 (3.60-5.2) 10/07/19 07:05 Hgb 12.9 GM/dL (10.7-15.3) 10/07/19 07:05 Hct 37.0 % (32.4-45.2) 10/07/19 07:05 MCV 93.0 fl (80-96) 10/07/19 07:05 MCHC 34.8 g/dl (32.0-36.0) 10/07/19 07:05 RDW 13.5 % (11.6-15.6) 10/07/19 07:05 Plt Count 146 K/MM3 (134-434) 10/07/19 07:05 MPV 7.0 fl (7.5-11.1) L 10/07/19 07:05 CMP Sodium 141 mmol/L (136-145) 10/07/19 07:05 Potassium 3.3 mmol/L (3.5-5.1) L 10/07/19 07:05 Chloride 106 mmol/L (98-107) 10/07/19 07:05 Carbon Dioxide 29 mmol/L (21-32) 10/07/19 07:05 Anion Gap 6 MMOL/L (8-16) L 10/07/19 07:05 BUN 11.5 mg/dL (7-18) 10/07/19 07:05 Creatinine 0.6 mg/dL (0.55-1.3) 10/07/19 07:05 Random Glucose 96 mg/dL (74-106) 10/07/19 07:05 Calcium 8.6 mg/dL (8.5-10.1) 10/07/19 07:05 Total Bilirubin 0.9 mg/dL (0.2-1) 10/06/19 07:00 AST 56 U/L (15-37) H 10/06/19 07:00 ALT 29 U/L (13-61) 10/06/19 07:00 Alkaline Phosphatase 57 U/L (45-117) 10/06/19 07:00 Total Protein 6.0 g/dl (6.4-8.2) L 10/06/19 07:00 Albumin 3.2 g/dl (3.4-5.0) L 10/06/19 07:00 CARDIAC ENZYMES Creatine Kinase 429 U/L (26-192) H 10/06/19 07:00 Troponin I 0.04 ng/ml (0.00-0.05) 10/06/19 07:00 Current Medications Generic Name Dose Route Start Last Admin Trade Name Quintonq PRN Reason Stop Dose Admin Aspirin 81 mg 10/06/19 10:00 10/06/19 11:56 Ecotrin - PO 81 mg DAILY IVETTE Administration Atorvastatin Calcium 10 mg 10/05/19 22:00 10/06/19 22:39 Lipitor - PO 10 mg HS IVETTE Administration Enoxaparin Sodium 40 mg 10/06/19 10:00 10/06/19 11:56 Lovenox - SQ 40 mg DAILY IVETTE Administration Dextrose/Sodium Chloride 1,000 mls @ 75 mls/hr 10/05/19 19:15 10/06/19 22:39 D5-1/2ns - IV 75 mls/hr ASDIR IVETTE Administration Melatonin 5 mg 10/06/19 22:00 10/06/19 22:39 Melatonin PO 5 mg HS IVETTE Administration Metoprolol Succinate 50 mg 10/05/19 22:00 10/06/19 22:42 Toprol Xl - PO 50 mg HS IVETTE Administration Metoprolol Succinate 100 mg 10/06/19 10:00 10/06/19 11:56 Toprol Xl - PO 100 mg DAILY IVETTE Administration Non-Formulary Medication 1 each 10/06/19 10:00 Calcium Citrate/Vitamin D3 [Citracal-Vit D 250 Mg-200 Tab] PO DAILY IVETTE Oseltamivir Phosphate 30 mg 10/05/19 22:00 10/06/19 22:39 Tamiflu - PO 10/10/19 21:59 30 mg BID IVETTE Administration Potassium Chloride 40 meq 10/07/19 08:00 K-Dur - PO 10/07/19 08:01 ONCE ONE Quinapril HCl 40 mg 10/06/19 10:00 10/06/19 11:56 Accupril - PO 40 mg DAILY IVETTE Administration Home Medications Medication Instructions Recorded Aspirin Coated [Ecotrin -] 81 mg PO DAILY 10/26/12 Atorvastatin Calcium [Lipitor] 10 mg PO HS 10/26/12 Metoprolol Succinate [Toprol XL -] 100 mg PO DAILY 10/26/12 Quinapril HCl [Accupril -] 40 mg PO DAILY 10/26/12 Diazepam [Valium] 5 mg PO PRN 10/05/19 Metoprolol Succinate 50 mg PO HS 10/05/19 Hydrochlorothiazide [Hctz -] 25 mg PO DAILY 10/06/19 Vit A/Vit C/Vit E/Zinc/Copper 1 each PO DAILY 10/06/19 [Preservision Areds Softgel] EKG: NSR, QTc: 459, incomplete LBBB f/u RPt. ASSESSMENT AND PLAN: Pt. is an 88 y.o. F w/ PMHx. of HTN, HLD, macular degeneration, and hearing loss presents for 4 days of generalized weakness and non-productive cough. #Generalized Weakness due to Influenza and dehydration: s/p IVF, continue Tamiflu 30mg BID (renally dosed), Flu A positive #Unwitnessed Fall, no LOC, Head CT: moderate atrophy. #Troponinemia : trop: 0.15 ,likely demand ischemia, Cardiology consult appreciated , continue home aspirin and toprol DVT px: lovenox
--- NOTE | 2019-10-07 10:10 | PN ---
Progress Note, Physician Chief Complaint: denies CP, SOB No palps. - Current Medication List Current Medications: Active Medications Aspirin (Ecotrin -) 81 mg PO DAILY [facility] Last Admin: 10/06/19 11:56 Dose: 81 mg Atorvastatin Calcium (Lipitor -) 10 mg PO HS [facility] Last Admin: 10/06/19 22:39 Dose: 10 mg Enoxaparin Sodium (Lovenox -) 40 mg SQ DAILY [facility] Last Admin: 10/06/19 11:56 Dose: 40 mg Dextrose/Sodium Chloride (D5-1/2ns -) 1,000 mls @ 75 mls/hr IV ASDIR [facility] Last Admin: 10/06/19 22:39 Dose: 75 mls/hr Melatonin (Melatonin) 5 mg PO [facility] Last Admin: 10/06/19 22:39 Dose: 5 mg Metoprolol Succinate (Toprol Xl -) 50 mg PO HS [facility] Last Admin: 10/06/19 22:42 Dose: 50 mg Metoprolol Succinate (Toprol Xl -) 100 mg PO DAILY [facility] Last Admin: 10/06/19 11:56 Dose: 100 mg Non-Formulary Medication (Calcium Citrate/Vitamin D3 [Citracal-Vit D 250 Mg-200 Tab]) 1 each PO DAILY [facility] Oseltamivir Phosphate (Tamiflu -) 30 mg PO BID [facility] Stop: 10/10/19 21:59 Last Admin: 10/06/19 22:39 Dose: 30 mg Potassium Chloride (K-Dur -) 40 meq PO ONCE ONE Stop: 10/07/19 10:16 Quinapril HCl (Accupril -) 40 mg PO DAILY [facility] Last Admin: 10/06/19 11:56 Dose: 40 mg - Objective Vital Signs: Vital Signs Temperature 97.8 F 10/07/19 02:00 Pulse Rate 68 10/07/19 06:00 Respiratory Rate 20 10/07/19 06:00 Blood Pressure 159/60 10/07/19 06:00 O2 Sat by Pulse Oximetry (%) 96 10/06/19 21:00 Constitutional: Yes: No Distress Cardiovascular: Yes: Regular Rate and Rhythm Respiratory: Yes: CTA Bilaterally Gastrointestinal: Yes: Soft Edema: No Neurological: Yes: Alert, Oriented Labs: CBC, BMP 10/07/19 07:05 10/07/19 07:05 INR, PTT INR 0.94 (0.83-1.09) 10/05/19 12:13 - ....Imaging EKG: Image Reviewed Assessment/Plan ecg: sr, old lbbb cxr: clear lungs a/p: 88 f hx htn, hld, here with weakness, cough, diarrhea. elevated trop: -borderline trop elevation with flat trend, nl ck index. No concerning cardiac sxs. ECG with chronic LBBB. Does not seem like acs. Echo normal EF, mild AR. htn: -cont home meds hld: -cont statin flu: -abx per primary team D/C Tele
[2019-10-07] MEDS ORDERED: POTASSIUM CHLORIDE TABS 20 MEQ TABLET.ER (FP) PO ONE (10:15)
[2019-10-07] MEDS: QUINAPRIL HCL 40 MG TABLET (FP) PO SCH (11:07)
[2019-10-07] MEDS: ENOXAPARIN NA (PORCINE) 40 MG/0.4 ML DISP.SYRIN SQ SCH (11:08)
[2019-10-07] MEDS: OSELTAMIVIR PHOSPHATE 30 MG CAPSULE PO SCH ×2 (11:09→23:02)
[2019-10-07] MEDS: ASPIRIN COATED 81 MG TABLET.EC PO SCH (11:09)
[2019-10-07] MEDS ORDERED: POTASSIUM CHLORIDE ORAL LIQUID 20 MEQ/15 ML PO ONE (17:33)
--- NOTE | 2019-10-07 17:44 | PN ---
Physical Exam: SUBJECTIVE: Patient seen and examined APOLINAR Thinks strength is slightly better. Endorses desire to be dispo'd home OBJECTIVE: Vital Signs Period Temp Pulse Resp BP Sys/Olivas Pulse Ox Last 24 Hr 97.8 F-99.2 F 64-68 20-20 118-159/45-64 96 GENERAL: The patient is awake, alert, in no acute distress. HEAD: NC/AT. Moderate temporal wasting EYES: extraocular movements intact, sclera anicteric, conjunctiva clear. No ptosis. ENT: Ears normal, nares patent, oropharynx clear without exudates, moist mucous membranes. NECK: Trachea midline, full range of motion, supple. Neg cervical LAD LUNGS: Breath sounds equal, clear to auscultation bilaterally, no wheezes, no crackles, no accessory muscle use. HEART: Regular rate and rhythm, S1, S2 without murmur, rub or gallop. ABDOMEN: Soft, nontender, nondistended, normoactive bowel sounds, no guarding, no rebound. EXTREMITIES: 2+ pulses, warm, well-perfused, no edema. NEUROLOGICAL: Normal speech, gait not observed. Mildly lethargic PSYCH: Normal mood, normal affect. SKIN: Warm, dry, normal turgor, no rashes or lesions noted Laboratory Results - last 24 hr 10/07/19 10/07/19 07:05 07:05 WBC 3.9 L RBC 3.97 Hgb 12.9 Hct 37.0 MCV 93.0 MCH 32.4 MCHC 34.8 RDW 13.5 Plt Count 146 MPV 7.0 L Sodium 141 Potassium 3.3 L Chloride 106 Carbon Dioxide 29 Anion Gap 6 L BUN 11.5 Creatinine 0.6 Est GFR (CKD-EPI)AfAm 94.32 Est GFR (CKD-EPI)NonAf 81.38 Random Glucose 96 Calcium 8.6 Phosphorus 3.2 Magnesium 2.2 Active Medications Generic Name Dose Route Start Last Admin Trade Name Freq PRN Reason Stop Dose Admin Aspirin 81 mg 10/06/19 10:00 10/07/19 11:09 Ecotrin - PO 81 mg DAILY IVETTE Administration Atorvastatin Calcium 10 mg 10/05/19 22:00 10/06/19 22:39 Lipitor - PO 10 mg HS IVETTE Administration Enoxaparin Sodium 40 mg 10/06/19 10:00 01/31/20 11:08 Lovenox - SQ 40 mg DAILY IVETTE Administration Melatonin 5 mg 10/06/19 22:00 10/06/19 22:39 Melatonin PO 5 mg HS IVETTE Administration Metoprolol Succinate 50 mg 10/05/19 22:00 10/06/19 22:42 Toprol Xl - PO 50 mg HS IVETTE Administration Metoprolol Succinate 100 mg 10/06/19 10:00 10/07/19 11:09 Toprol Xl - PO 100 mg DAILY IVETTE Administration Non-Formulary Medication 1 each 10/06/19 10:00 Calcium Citrate/Vitamin D3 [Citracal-Vit D 250 Mg-200 Tab] PO DAILY IVETTE Oseltamivir Phosphate 30 mg 10/05/19 22:00 10/07/19 11:09 Tamiflu - PO 10/10/19 21:59 30 mg BID IVETTE Administration Potassium Chloride 40 meq 10/07/19 17:33 10/07/19 17:43 Potassium Chloride Oral Liquid PO 10/07/19 17:34 Not Given ONCE ONE Quinapril HCl 40 mg 10/06/19 10:00 10/07/19 11:07 Accupril - PO 40 mg DAILY IVETTE Administration ASSESSMENT/PLAN: 88 y.o. F w/ PMHx. of HTN, HLD, macular degeneration, and hearing deficiency presented for 4 days of generalized weakness and non-productive cough. Had an episode of severe weakness with inability to ambulate, denied LOC. #Generalized Weakness 2/2 Influenza and dehydration > Flu A positive > CXR: No acute pathology - c/w Tamiflu 30mg BID (renally dosed) --day 3 - Isolation precaution #Unwitnessed Fall > Head CT: neg acute pathology. Mild ethmoid chronic sinusitis, mild nasal septum deviation - Neurochecks daily - PT evalu #Troponinemia --possibly 2/2 to recent severe weakness w/ being down > Trop: 0.15, 0.15, 0.04 > EKG: NSR, QTc: 459, incomplete LBBB f/u RPt. > Echo: LVEF 60-65% - Cardiology consult to Dr. Carias appreciated: --echo --if normal echo, then no further cardiac testing #HTN #HLD - cw ASA, Metoprolol, Quinapril and Lipitor #FEN -Sodium controlled diet #DVT Ppx. Lovenox 40mg SQ Visit type - Emergency Visit Emergency Visit: No - New Patient This patient is new to me today: No - Critical Care Critical Care patient: No ATTENDING PHYSICIAN STATEMENT I saw and evaluated the patient. I reviewed the resident's note and discussed the case with the resident. I agree with the resident's findings and plan as documented. SUBJECTIVE: OBJECTIVE: ASSESSMENT AND PLAN:
[2019-10-07] MEDS ORDERED: PT OWN MED DRAWER 7, Y5N ONE (22:52)
[2019-10-07] MEDS: ATORVASTATIN CA 10 MG TABLET (FP) PO SCH (22:58)
[2019-10-07] MEDS: MELATONIN 5 MG TABLETS PO SCH (22:58)
[2019-10-08] MEDS ORDERED: CALCIUM 500MG/VIT-D 200 UNITS COMBO TABLET (FP) PO SCH (10:00)
--- NOTE | 2019-10-08 10:01 | PN ---
Progress Note, Physician Chief Complaint: weakness, cough History of Present Illness: still coughing, not severe denies sob, swelling, cp - Current Medication List Current Medications: Active Medications Aspirin (Ecotrin -) 81 mg PO DAILY [facility] Last Admin: 10/07/19 11:09 Dose: 81 mg Atorvastatin Calcium (Lipitor -) 10 mg PO [facility] Last Admin: 10/07/19 22:58 Dose: 10 mg Calcium Carbonate/Cholecalciferol (Os-Cayden 500+D -) 1 tab PO DAILY [facility] Enoxaparin Sodium (Lovenox -) 40 mg SQ DAILY [facility] Last Admin: 10/07/19 11:08 Dose: 40 mg Melatonin (Melatonin) 5 mg PO [facility] Last Admin: 10/07/19 22:58 Dose: 5 mg Metoprolol Succinate (Toprol Xl -) 50 mg PO [facility] Last Admin: 10/07/19 22:58 Dose: 50 mg Metoprolol Succinate (Toprol Xl -) 100 mg PO DAILY [facility] Last Admin: 10/07/19 11:09 Dose: 100 mg Oseltamivir Phosphate (Tamiflu -) 30 mg PO BID [facility] Stop: 10/10/19 21:59 Last Admin: 10/07/19 23:02 Dose: 30 mg Quinapril HCl (Accupril -) 40 mg PO DAILY [facility] Last Admin: 10/07/19 11:07 Dose: 40 mg - Objective Vital Signs: Vital Signs Temperature 98.1 F 10/08/19 05:52 Pulse Rate 53 L 10/08/19 05:52 Respiratory Rate 20 10/08/19 05:52 Blood Pressure 160/95 10/08/19 05:52 O2 Sat by Pulse Oximetry (%) 95 10/07/19 21:00 Constitutional: Yes: Well Nourished, No Distress, Calm Cardiovascular: Yes: Regular Rate and Rhythm, S1, S2. No: Gallop, Murmur Respiratory: Yes: Regular, CTA Bilaterally. No: Accessory Muscle Use, Rales, Wheezes Extremities: No: Cold Edema: No Neurological: Yes: Alert, Oriented Psychiatric: No: Agitated Labs: CBC, BMP 10/07/19 07:05 10/07/19 07:05 INR, PTT INR 0.94 (0.83-1.09) 10/05/19 12:13 Assessment/Plan ecg: sr, old lbbb cxr: clear lungs a/p: 88 f hx htn, hld, here with weakness, cough, diarrhea. elevated trop: -borderline trop elevation with flat trend, nl ck index. No concerning cardiac sxs. ECG with chronic LBBB. Does not seem like acs. Echo normal EF, mild AR. htn: -at times bp's suboptimal, ? acute infxn/coughing contributing -cont home meds, observe trend hld: -cont statin flu: -abx per primary team D/C Tele NO FURTHER INPATIENT CARDIAC CARE INDICATED
[2019-10-08] MEDS: ENOXAPARIN NA (PORCINE) 40 MG/0.4 ML DISP.SYRIN SQ SCH (10:18)
[2019-10-08] MEDS: ASPIRIN COATED 81 MG TABLET.EC PO SCH (10:19)
[2019-10-08] MEDS: OSELTAMIVIR PHOSPHATE 30 MG CAPSULE PO SCH (10:19)
[2019-10-08] MEDS: QUINAPRIL HCL 40 MG TABLET (FP) PO SCH (10:19)
[2019-10-08] MEDS ORDERED: PT OWN MED DRAWER 7, Y5N ONE ×2 (10:43→15:34)
[2019-10-08 12:35] LABS: BLOOD UREA NITROGEN 13.3 mg/dL (7-18); CALCIUM 8.6 mg/dL (8.5-10.1); CREATININE 0.6 mg/dL (0.55-1.3); MAGNESIUM 2.3 mg/dL (1.8-2.4); POTASSIUM 3.7 mmol/L (3.5-5.1)
[2019-10-08 14:22] VITALS: BP 129/70; PULSE 64; TEMP 97.9
--- NOTE | 2019-10-08 15:25 | DS ---
Physical Exam: SUBJECTIVE: Patient seen and examined Patient is comfortable, able to ambulate without any difficulty. daughter at bedside, walked with her to the bathroom. will be going to her 2nd daughter's house since will be able to watch her. her is deaf and cannot hear her in the house, before coming to the hospital patient was on the floor for 4 hours prior to getting any help. OBJECTIVE: Vital Signs Temperature 97.9 F 10/08/19 14:00 Pulse Rate 64 10/08/19 14:00 Respiratory Rate 20 10/08/19 14:00 Blood Pressure 129/70 10/08/19 14:00 O2 Sat by Pulse Oximetry (%) 95 10/08/19 09:00 PHYSICAL EXAM GENERAL: The patient is awake, alert, and fully oriented, in no acute distress. HEAD: Normal with no signs of trauma. EYES: PERRL, extraocular movements intact, sclera anicteric, conjunctiva clear. ENT: Ears normal, nares patent, oropharynx clear without exudates, moist mucous membranes. NECK: Trachea midline, full range of motion, supple. LUNGS: Breath sounds equal, clear to auscultation bilaterally, no wheezes, no crackles, no accessory muscle use. HEART: Regular rate and rhythm, S1, S2 without murmur, rub or gallop. ABDOMEN: Soft, nontender, nondistended, normoactive bowel sounds, no guarding, no rebound, no hepatosplenomegaly, no masses. EXTREMITIES: 2+ pulses, warm, well-perfused, no edema. NEUROLOGICAL: Cranial nerves II through XII grossly intact. Normal speech, gait not observed. PSYCH: Normal mood, normal affect. SKIN: Warm, dry, normal turgor, no rashes or lesions noted. LABS Laboratory Results - last 24 hr 10/08/19 11:30 Sodium 138 Potassium 3.7 Chloride 103 Carbon Dioxide 28 Anion Gap 7 L BUN 13.3 Creatinine 0.6 Est GFR (CKD-EPI)AfAm 94.32 Est GFR (CKD-EPI)NonAf 81.38 Random Glucose 111 H Calcium 8.6 Magnesium 2.3 CBCD WBC 3.9 K/mm3 (4.0-10.0) L 10/07/19 07:05 RBC 3.97 M/mm3 (3.60-5.2) 10/07/19 07:05 Hgb 12.9 GM/dL (10.7-15.3) 10/07/19 07:05 Hct 37.0 % (32.4-45.2) 10/07/19 07:05 MCV 93.0 fl (80-96) 10/07/19 07:05 MCHC 34.8 g/dl (32.0-36.0) 10/07/19 07:05 RDW 13.5 % (11.6-15.6) 10/07/19 07:05 Plt Count 146 K/MM3 (134-434) 10/07/19 07:05 MPV 7.0 fl (7.5-11.1) L 10/07/19 07:05 CMP Sodium 138 mmol/L (136-145) 10/08/19 11:30 Potassium 3.7 mmol/L (3.5-5.1) 10/08/19 11:30 Chloride 103 mmol/L (98-107) 10/08/19 11:30 Carbon Dioxide 28 mmol/L (21-32) 10/08/19 11:30 Anion Gap 7 MMOL/L (8-16) L 10/08/19 11:30 BUN 13.3 mg/dL (7-18) 10/08/19 11:30 Creatinine 0.6 mg/dL (0.55-1.3) 10/08/19 11:30 Random Glucose 111 mg/dL (74-106) H 10/08/19 11:30 Calcium 8.6 mg/dL (8.5-10.1) 10/08/19 11:30 Total Bilirubin 0.9 mg/dL (0.2-1) 10/06/19 07:00 AST 56 U/L (15-37) H 10/06/19 07:00 ALT 29 U/L (13-61) 10/06/19 07:00 Alkaline Phosphatase 57 U/L (45-117) 10/06/19 07:00 Total Protein 6.0 g/dl (6.4-8.2) L 10/06/19 07:00 Albumin 3.2 g/dl (3.4-5.0) L 10/06/19 07:00 CARDIAC ENZYMES Creatine Kinase 429 U/L (26-192) H 10/06/19 07:00 Troponin I 0.04 ng/ml (0.00-0.05) 10/06/19 07:00 Current Medications Generic Name Dose Route Start Last Admin Trade Name Quintonq PRN Reason Stop Dose Admin Aspirin 81 mg 10/06/19 10:00 10/08/19 10:19 Ecotrin - PO 81 mg DAILY [facility] Administration Atorvastatin Calcium 10 mg 10/05/19 22:00 10/07/19 22:58 Lipitor - PO 10 mg HS [facility]TE Administration Calcium Carbonate/Cholecalciferol 1 tab 10/08/19 10:00 10/08/19 10:18 Os-Cayden 500+D - PO 1 tab DAILY [facility] Administration Enoxaparin Sodium 40 mg 10/06/19 10:00 10/08/19 10:18 Lovenox - SQ 40 mg DAILY [facility] Administration Melatonin 5 mg 10/06/19 22:00 10/07/19 22:58 Melatonin PO 5 mg HS [facility]TE Administration Metoprolol Succinate 50 mg 10/05/19 22:00 10/07/19 22:58 Toprol Xl - PO 50 mg HS [facility]TE Administration Metoprolol Succinate 100 mg 10/06/19 10:00 10/08/19 10:19 Toprol Xl - PO 100 mg DAILY [facility] Administration Oseltamivir Phosphate 30 mg 10/05/19 22:00 10/08/19 10:19 Tamiflu - PO 10/10/19 21:59 30 mg BID [facility]TE Administration Quinapril HCl 40 mg 10/06/19 10:00 10/08/19 10:19 Accupril - PO 40 mg DAILY [facility] Administration Home Medications Medication Instructions Recorded Aspirin Coated [Ecotrin -] 81 mg PO DAILY 10/26/12 Atorvastatin Calcium [Lipitor] 10 mg PO HS 10/26/12 Metoprolol Succinate [Toprol XL -] 100 mg PO DAILY 10/26/12 Quinapril HCl [Accupril -] 40 mg PO DAILY 10/26/12 Diazepam [Valium] 5 mg PO PRN 10/05/19 Metoprolol Succinate 50 mg PO HS 10/05/19 Hydrochlorothiazide [Hctz -] 25 mg PO DAILY 10/06/19 Vit A/Vit C/Vit E/Zinc/Copper 1 each PO DAILY 10/06/19 [Preservision Areds Softgel] Home Medications Medication Instructions Recorded RX: Aspirin Coated [Ecotrin -] 81 mg PO DAILY 10/26/12 RX: Atorvastatin Calcium [Lipitor] 10 mg PO HS 10/26/12 RX: Metoprolol Succinate [Toprol 100 mg PO DAILY 10/26/12 XL -] RX: Quinapril HCl [Accupril -] 40 mg PO DAILY 10/26/12 RX: Metoprolol Succinate 50 mg PO HS 10/05/19 RX: Vit A/Vit C/Vit E/Zinc/Copper 1 each PO DAILY 10/06/19 [Preservision Areds Softgel] RX: Calcium 500Mg/Vit-D 200 Units 1 tab PO DAILY tab 10/08/19 [Os-Cayden 500+D -] RX: Oseltamivir Phosphate [Tamiflu 30 mg PO BID #5 capsule 10/08/19 -] EKG: NSR, QTc: 459, incomplete LBBB f/u RPt. HOSPITAL COURSE: Date of Admission:10/05/19 Date of Discharge: 10/08/19 Pt. is an 88 y.o. F w/ PMHx. of HTN, HLD, macular degeneration, and hearing loss presents for 4 days of generalized weakness and non-productive cough. #Generalized Weakness due to Influenza and dehydration: s/p IVF, continue Tamiflu 30mg BID (renally dosed), Flu A positive, continue taking tamiflu renally dosed for 2 more days, send the rxs by her daughter's pharmacy. today's dose was given to her prior to her discharge. head Ct was done which showed atrophy. #Unwitnessed Fall, no LOC, Head CT: moderate atrophy. patient lives with her who is deaf , when she fell was on the floor for 4 hours, daughter is taking her mother to her house. #Troponinemia : trop: 0.15 ,likely demand ischemia, Cardiology consult appreciated , continue home aspirin and toprol . as per cardiology patient can be discharged. Rxs were sent to her pharmcy by her daughter Tamuflu 30mg po bid for 2 more days total # of 5 dc patient home, dc'd home with home visiting nurse. also was evaluated by the PT before her discharge 120feet with one assist Minutes to complete discharge: 35 Discharge Summary Problems reviewed: Yes Reason For Visit: INFLUENZA VIRUS,NON ST ELEVATION MYOCARDIAL INFARC Current Active Problems Influenza A (Acute) NSTEMI (non-ST elevated myocardial infarction) (Acute) Condition: Stable - Instructions Diet, Activity, Other Instructions: You were admitted for having the flu. Please complete the medication that is prescribed for you Tamiflu 30mg orally 2x per day for 3 more days. follow up with your doctor within a week period. Visiting nurse is arranged for you. wear a mask if possible when you go outside. stay away from crowded places. Referrals: Pedro Meza MD [Primary Care Provider] - 1 Week Disposition: HOME - Home Medications Comprehensive Discharge Medication List: Ambulatory Orders Aspirin Coated [Ecotrin -] 81 mg PO DAILY 10/26/12 Atorvastatin Calcium [Lipitor] 10 mg PO HS 10/26/12 Metoprolol Succinate [Toprol XL -] 100 mg PO DAILY 10/26/12 Quinapril HCl [Accupril -] 40 mg PO DAILY 10/26/12 Diazepam [Valium] 5 mg PO PRN 10/05/19 Metoprolol Succinate 50 mg PO HS 10/05/19 Hydrochlorothiazide [Hctz -] 25 mg PO DAILY 10/06/19 Vit A/Vit C/Vit E/Zinc/Copper [Preservision Areds Softgel] 1 each PO DAILY 10/06 This patient is new to me today: No Emergency Visit: Yes ED Registration Date: 10/05/19 Care time: The patient presented to the Emergency Department on the above date and was hospitalized for further evaluation of their emergent condition. Critical Care patient: No - Discharge Referral Referred to [facility] No
== END 2019-10-08 15:55 | disposition home or self-care (01) | DRG 194 ==
LOC: SUPCPDRO 11:05 → JER 11:05 → JERBED 13:52 → J4W 10-06 12:39
PROVIDERS: ADMIT Internal Medicine; ATTEND Internal Medicine
DX: J10.1 Influenza due to other identified influenza virus with other respiratory manifestations (principal); I24.8 Other forms of acute ischemic heart disease; N17.9 Acute kidney failure, unspecified; I10 Essential (primary) hypertension; E78.5 Hyperlipidemia, unspecified; H35.30 Unspecified macular degeneration; H91.93 Unspecified hearing loss, bilateral; E86.0 Dehydration; R05 Cough; I44.7 Left bundle-branch block, unspecified; R53.1 Weakness; J32.2 Chronic ethmoidal sinusitis; J34.2 Deviated nasal septum; W18.39XA Other fall on same level, initial encounter; Y92.091 Bathroom in other non-institutional residence as the place of occurrence of the external cause
CPT/HCPCS: 36415; 70450-TC; 71045-TC-FY; 80048; 80053; 81003; 82550; 82553; 83605; 83690; 83735; 84100; 84484; 85025; 85027; 85610; 85730; 87086; 87804; 93005; 93010; 93306-TC; 97116-GP; 97161-GP; 99285-25